=== PATIENT | male | born 1995 | race Caucasian/White ===

== ENCOUNTER 2021-01-04 07:39 | Emergency (ER) | payer MEDICAID, SELFPAY ==
[2021-01-04 07:45] VITALS: BP 139/60; PULSE 69; RESP 15; TEMP 36.5; O2SAT 100
[2021-01-04] MEDS: Balanced Salt Solution 15 ML BTL (08:00)
[2021-01-04] MEDS: Tetracaine 0.5% 4 ML BTL (08:00)
[2021-01-04] MEDS: Fluorescein STRIPS 100/BOX 1 MG (08:00)
--- NOTE | 2021-01-04 08:10 | W.ED.GENAD ---
Discharge Plan Disposition Patient Disposition: HOME Condition: Stable Discharge Details Clinical Impression: Foreign body in eye Primary Care Provider: Cleo Thompson ED Provider: Edwige Ramos Home Meds and New Rx's Prescriptions: No Action No Known Home Meds RF: 0 Discharge Instructions Instructions: Eye Foreign Body (ED) Additional Instructions: Please return immediately to the emergency department if you develop any new or worsening symptoms, if your condition does not improve as expected, or if you become otherwise concerned. It is extremely important that you call soon as possible to make an appointment to be seen in follow-up for this visit by your primary care doctor. Referrals: Cleo Thompson [Primary Care Provider] - Discharge Data Discharge Date/Time-TO BE ENTERED AT DEPARTURE: 01/04/21 08:25 Medical Decision Making Miguel Doshi is a 25 y/o man without reported major medical problems who presented to the emergency department with foreign body sensation right eye after feeling sawdust fly into eye yesterday. On exam patient is well and nontoxic-appearing. Normal vision bilaterally on visual acuity per nursing. Foreign body removed from upper lateral eyelid when lid swept. No abnormality on fluorescein staining. Concern for retained foreign body causing symptoms. Exam/history at this time is not consistent with infectious pathology, corneal abrasion, corneal ulceration. Patient reporting foreign body sensation resolved after foreign body removed. Patient with no further complaints, requesting discharge home. I had a lengthy discussion with Patient regarding return to emergency department precautions, home care, and importance of outpatient follow-up. Pt verbalizes understanding of the plan and is amenable. Patient discharged to home with clear plan for outpatient follow-up. All questions were answered. Disposition decision was made weighing the risks and benefits of hospitalization versus outpatient treatment, the risk for further decompensation, and the patient's wishes. Medical Records Medical records reviewed: Yes I reviewed the patient's medical records. HPI General Mode of arrival: ambulatory. Date/Time Provider Initiated Documentation: 01/04/21 08:10. Limitations to Documentation: no limitations. Information obtained by: patient, RN notes reviewed and old records reviewed. HPI Narrative: Miguel Felix is a 24-year-old man without reported history of major medical problems presenting to the emergency department with foreign body to eye. Pt reports that yesterday he was using an electric saw and wearing safety glasses when he felt a piece of sawdust fly into his right eye. Pt reports that he has the sensation that he has something in his eye. No visual changes, no eye pain, no discharge other than increased tears. Does not wear contact lenses. He denies any other injury or complaint. No fevers, no other pain, no vomiting. Has been able to go about his activities as usual since incident. Pt reports last tetanus 2-3 years ago. Related Data Home Medications Medication Instructions Recorded Confirmed Unknown [No Known Home Meds] 01/04/21 01/04/21 Allergies Allergy/AdvReac Type Severity Reaction Status Date / Time Penicillins Allergy Intermediate Topical Unverified 01/04/21 07:52 Irritation General Stated Complaint: EyeProblem TO: 4 Review of Systems Narrative: Constitutional: denies fevers Eyes: denies eye pain, eye redness, visual changes, reports foreign body sensation to right eye ENT: denies ear pain, dental pain, sore throat Cardiovascular: denies chest pain Respiratory: denies SOB, cough GI: denies abdominal pain, vomiting : denies flank pain MSK: denies back pain, neck pain Neuro: denies headaches, numbness, weakness [facility] Social History Smoking/Tobacco Use Status: Never Smoking risk assessment performed?: Yes Alcohol Intake: current Alcohol Intake frequency: holidays/special occasions only Drug use: Never Substance use type: does not use Do you feel safe at home: Yes Do you feel safe in your relationship?: Yes Exam Narrative Exam Narrative: Constitutional: well and [id number], pleasant, conversing normally HENT: head atraumatic/normocephalic/normal inspection, mucous membranes moist Eyes: mild injection of conjunctiva right eye, left conjunctiva normal, sclera normal, pupils 3mm b/l, ERRLA, EOMI. right upper and lower lid everted and swept, 1mm FB c/w wood swept from upper lateral lid. Fluorescein staining performed, there is no fluorescein uptake of the eye, normal appearance of cornea Neck: no stridor, normal ROM, trachea midline Resp: normal work of breathing, speaking in full sentences Cardio: normal rate, normal rhythm Skin: warm, dry, normal color, no rash Neuro: alert, not altered, grossly non-focal, normal tone, normal gait Ext: moving al extremities equally Psych: normal mood, normal affect, normal behavior Course Vital Signs Vital signs: Vital Signs Temperature 36.5 C 01/04/21 07:45 Pulse 69 01/04/21 07:45 Respiratory Rate 15 01/04/21 07:45 Blood Pressure 139/60 01/04/21 07:45 Pulse Oximetry 100 01/04/21 07:45 Temperature 36.5 C 01/04/21 07:45 Temperature Source Temporal Artery Scan 01/04/21 07:45 Pulse 69 01/04/21 07:45 Respiratory Rate 15 01/04/21 07:45 Respiratory Effort Non-Labored 01/04/21 07:50 Blood Pressure 139/60 01/04/21 07:45 Blood Pressure Position Sitting 01/04/21 07:45 Pulse Oximetry 100 01/04/21 07:45 Oxygen Delivery Method Room Air 01/04/21 07:45 Oxygen Flow Rate 0 01/04/21 07:45 Pain Level 1 01/04/21 07:45
== END 2021-01-04 08:25 | disposition home or self-care (01) ==
PROVIDERS: Emergency Provider Student in an Organized Health Care Education/Training Program; PCP Nurse Practitioner Family
DX: T15.11XA Foreign body in conjunctival sac, right eye, initial encounter (principal)
CPT/HCPCS: 99283

== ENCOUNTER 2021-02-26 14:41 | Outpatient (REF) | payer MEDICAID, SELFPAY ==
[2021-02-26 21:24] LABS: Mono Screening Negative (Negative)
== END 2021-02-26 14:42 | disposition home or self-care (01) ==
LOC: LBN 14:41
PROVIDERS: PCP Nurse Practitioner Family; Visit Provider Physician Assistant Medical
DX: J02.9 Acute pharyngitis, unspecified (principal)
CPT/HCPCS: 86308

== ENCOUNTER 2021-03-04 10:08 | Outpatient (CLI) | payer MEDICAID, SELFPAY ==
[2021-03-04] MEDS: Normal Saline - Diluent 50 ML VIAL IV (14:37)
[2021-03-04] MEDS: Omnipaque 350 MG/ML 100 ML BTL IJ (14:38)
[2021-03-04] MEDS: Normal Saline Flush 10 ML SYR IVP (14:39)
--- NOTE | 2021-03-04 14:42 | DI.CT_ITS ---
Exam(s) CT NECK W EXAM: CT NECK W CLINICAL HISTORY: PHARYNGITIS, J02.9, ? ABSCESS. TECHNIQUE: Imaging Protocol: Axial CT angiography was performed with multi-slice acquisition and mu lti-planar and/or 3D reconstructions. CONTRAST MATERIAL: Intravenous: Omnipaque 350 Contrast volume:100 cc COMPARISON: No exams were available for comparison FINDINGS: Tissues of the nasopharynx appear symmetrical. The uvula is midline. There is narrowing of the marce pharyngeal airway which is pinpoint but may be r elated to the patient holding his breath. There is no ring enhancing mass at this level to suggest p resence of an abscess. Free edge of the epiglottis appears unremarkable as do the valleculae and the aryepiglottic folds are relatively symmetrical. No discrete obvious lesions in the larynx and subgl ottic airway. There is no significant prevertebral soft tissue swelling. The thyroid gland appears unremarkable. No parotid gland masses. No abnormality seen in the submand ibular glands. Small benign-appearing lymph nodes are noted in both sides the neck. Largest measures 1.8 x 0 point 7 cm. No gross lymphadenopathy. Also no supraclavicular adenopathy. No thrombosis of the jugular v eins. IMPRESSION: 1. There is pinpoint narrowing of the airway at the oral-hypopharynx level. However, this may due to the patient holding his breath. There is no obvious asymmetry. Correlation with clinical findings recommended determine if repeat study with out breath holding would be recommended. 2. No salivary gland nor thyroid gland masses. 3. No gross lymphadenopathy in the neck. Multiple small lymph nodes are noted bilaterally. There i s no obvious supraclavicular adenopathy. RADIATION DOSE DELIVERED: 418.51mGy.cm Total DLP DATA REPOSITORY: All CT scans at this facility are submitted to the National Radiology Data Registry (NRDR) Dose Index Registry (DIR) with the [employer] [employer] (ACR). RADIATION OPTIMIZATION: All CT scans at this facility use at least one of these dose optimization te chniques: automated exposure control; mA and/or kV adjustment per patient size (includes targeted exa ms where dose is matched to clinical indication); or iterative reconstruction.
== END 2021-03-04 10:28 ==
PROVIDERS: PCP Nurse Practitioner Family; Visit Provider Physician Assistant Medical
DX: J02.9 Acute pharyngitis, unspecified (principal); J39.2 Other diseases of pharynx
CPT/HCPCS: 70491; J3490

== ENCOUNTER 2021-03-10 11:16 | Outpatient (REF) | payer MEDICAID, SELFPAY | END 2021-03-10 11:17 | disposition home or self-care (01) | LOC: NCHCN 11:16 | PROVIDERS: PCP Nurse Practitioner Family; Visit Provider Physician Assistant Medical | DX: J02.9 Acute pharyngitis, unspecified (principal) | CPT/HCPCS: 87070 ==

== ENCOUNTER 2022-06-26 14:52 | Emergency (ER) | payer MEDICAID, SELFPAY ==
[2022-06-26 15:09] VITALS: BP 116/60; PULSE 72; RESP 18; TEMP 36.5; O2SAT 99
--- NOTE | 2022-06-26 15:30 | DI.RAD_ITS ---
Exam(s) XR FINGER RT INDEX EXAM: XR FINGER RT INDEX CLINICAL HISTORY: Laceration, R/O Foreign body. TECHNIQUE: 2D digital imaging was performed of the right finger. Three views were obtained. PA/AP, oblique, and lateral views were obtained. COMPARISON: No exams were available for comparison FINDINGS: BONES: No acute fracture is present. No bony destructive lesion is seen. JOINTS: No dislocation present. SOFT TISSUE: Soft tissue swelling of the 2nd and 3rd fingers. No radiopaque foreign bodies are seen in the soft tissues. There is hyperdense material so seated with the nail beds of the 2nd and 3rd fi ngers. IMPRESSION: 1. No acute fracture or dislocation. 2. Soft tissue swelling of the 2nd and 3rd fingers. 3. Hyperdense material associated with the nail beds of the 2nd and 3rd fingers. Please correlate wi th physical exam. DATA REPOSITORY: RADIATION DOSE DELIVERED:
--- NOTE | 2022-06-26 16:45 | DI.VRAD_ITS ---
PROCEDURE INFORMATION: Exam: XR Right Finger(s) Exam date and time: 06/26/2022 4:23 PM Age: 27 years old Clinical indication: Injury or trauma; Other: Laceration by a outer diameter grinder attention proximal index finger and mcp; Right TECHNIQUE: Imaging protocol: Radiologic exam of the Right fingers. Views: Minimum 2 views. COMPARISON: No relevant prior studies available. FINDINGS: Normal anatomic alignment and bone density. No acute fracture, dislocation, or aggressive osseous lesion. Swelling at the tips of the 2nd and 3rd fingers. Hyperdense material in the 2nd and 3rd finger nail beds. IMPRESSION: 1. No acute skeletal pathology. 2. Finger tip swelling at the 2nd and 3rd fingers. 3. Foreign material within the nail beds of the 2nd and 3rd fingers. Dictated and Authenticated by: Darin Bledsoe MD. Ordering:JANNET Bernal MD
--- NOTE | 2022-06-26 16:48 | ED.GENADUL_ITS ---
Discharge Plan Disposition Patient Disposition: HOME Condition: Stable Discharge Details Clinical Impression: Injury of extensor tendon of right hand, Laceration of right index finger Primary Care Provider: Cleo Thompson ED Provider: Dolores Meza Home Meds and New Rx's Prescriptions: New clindamycin HCl 150 mg capsule 450 mg PO TID 7 Days Qty: 63 0RF Discharge Instructions Instructions: Finger Laceration (ED) Additional Instructions: Keep the Finger straight with the splint, Follow up with orthopedics. After 12 to 24 hours you may wash with soap and water. No soaking. Please return to the ER for any signs of infection including increased redness, red streaks, drainage or increased pain. Please take Tylenol or Ibuprofen with food every 4-6 hours as needed for pain and swelling. Take antibiotic as directed. Take it with food. Stand Alone Forms: Work Release Referrals: Cleo Thompson [Primary Care Provider] - Garrett Webster MD [ [facility] STAFF PHYSICIAN] - 1 week Discharge Data Discharge Date/Time-TO BE ENTERED AT DEPARTURE: 06/26/22 17:49 Medical Decision Making 27 year old male Right hand dominant with chief complaint of laceration which is just directly over the PIP joint. 1712:Laceration anethesized with Lidocaine 1 % plain, patient tolerated well. Laceration was repaired with 3 simple interrupted sutures wound was well approximated. Splint was applied by staff combat information center officer prior to discharge. Discussed case with Dr. Webster on-call for orthopedics. suspect extendor tendon laceration. He recommends follow-up with the clinic and splinting in the extended or straight position. Patient was given clindamycin here in the department and a prescription for clindamycin. Discussed strict return instructions and home care and instructed to follow-up with orthopedics. Patient was placed on the care management list for Ortho follow-up. HPI General Mode of arrival: ambulatory . Date/Time Provider Initiated Documentation: 06/26/22 15:37 . Limitations to Documentation: no limitations . Information obtained by: patient, RN notes reviewed and old records reviewed . HPI Narrative: 27 year old male Right hand dominant with chief complaint of laceration which is just directly over the PIP joint. He was using a external grinder tool when it slipped and cut his knuckle. He does have decreased extension to finger. Distal sensation intact. He reports TDAP within 10 years. No other associated symptoms or concerns, bleeding controlled. Related Data Home Medications Medication Instructions Recorded Confirmed clindamycin HCl 150 mg capsule 450 mg PO TID 7 days #63 caps 06/26/22 Previous Rx's Medication Instructions Recorded clindamycin HCl 150 mg capsule 450 mg PO TID 7 days #63 caps 06/26/22 Allergies Allergy/AdvReac Type Severity Reaction Status Date / Time Penicillins Allergy Intermediate Topical Unverified 06/26/22 16:50 Irritation General Stated Complaint: Laceration TO: 4 Review of Systems Musculoskeletal Musculoskeletal: Reports as per HPI and Reports arthralgias (Laceration) Integumentary/Breasts Skin/Breast: Reports wounds (PIP joint, ) PFS All Active Problems (Updated 06/26/22 @ 17:39 by Dolores Meza NP) Injury of extensor tendon of right hand (Acute) Laceration of right index finger (Acute) Chronic tonsillitis (Acute) Foreign body in eye (Acute) Social History Smoking/Tobacco Use Status: Never Smoking risk assessment performed?: Yes Alcohol Intake: current Alcohol Intake frequency: holidays/special occasions only Drug use: Never Substance use type: does not use Do you feel safe at home: Yes Do you feel safe in your relationship?: Yes Exam Extrem Right upper extremity: wrist Details: normal to inspection and normal ROM; no tenderness and no swelling and hand Details: laceration 2nd digit dorsal aspect proximal Details: linear and with sensation intact; without motor nerve function intact Hand/finger images: 1. Approximately 1.5 cm laceration over the PIP joint, decreased ability to extend finger. Distal sensation intact. Flexion WNL. Course Vital Signs Vital signs: Vital Signs Temperature 36.5 C 06/26/22 15:09 Pulse 72 06/26/22 15:09 Respiratory Rate 18 06/26/22 15:09 Blood Pressure 116/60 06/26/22 15:09 Pulse Oximetry 99 06/26/22 15:09 Temperature 36.5 C 06/26/22 15:09 Temperature Source Temporal Artery Scan 06/26/22 15:09 Pulse 72 06/26/22 15:09 Respiratory Rate 18 06/26/22 15:09 Blood Pressure 116/60 06/26/22 15:09 Blood Pressure Position Sitting 06/26/22 15:09 Pulse Oximetry 99 06/26/22 15:09 Oxygen Delivery Method Room Air 06/26/22 15:09 Oxygen Flow Rate 0 06/26/22 15:09 Procedures Laceration Laceration 1: Site: hand (Right index finger/mcp joint) Side (If applicable): right Size (cm): 1.5 Description: linear and contaminated Depth: simple, single layer Local Anesthetic: Lidocaine 1% Amount of anesthesia used (mL): 2 Pre-repair: wound explored (Suspect extendor tendon laceration) and irrigated extensively Skin layer closed with: nylon Size (cm): 5-0 Number of sutures: 3
[2022-06-26] MEDS: Clindamycin 150 MG CAP 450 MG PO (16:58)
== END 2022-06-26 17:49 | disposition home or self-care (01) ==
PROVIDERS: Emergency Provider Registered Nurse Emergency; PCP Nurse Practitioner Family
DX: S66.320A Laceration of extensor muscle, fascia and tendon of right index finger at wrist and hand level, initial encounter (principal); W29.0XXA Contact with powered kitchen appliance, initial encounter
CPT/HCPCS: 12001; 99283; 73140; J3490

== ENCOUNTER 2022-06-27 10:27 | Outpatient (CLI) | payer MEDICAID, SELFPAY ==
[2022-06-27 12:51] LABS: Source Nasal/Nares
[2022-06-27 20:00] LABS: COVID-19 PCR Negative (Negative)
== END 2022-06-27 10:28 | disposition home or self-care (01) ==
LOC: LBO 10:27
PROVIDERS: PCP Nurse Practitioner Family; Referring Provider Nurse Practitioner Family; Visit Provider Student in an Organized Health Care Education/Training Program
DX: Z20.822 Contact with and (suspected) exposure to COVID-19 (principal)
CPT/HCPCS: 87635

== ENCOUNTER 2022-06-29 12:06 | Day surgery (SDC) | payer MEDICAID, SELFPAY ==
--- NOTE | 2022-06-29 09:54 | PDOC.DSDIS_ITS ---
Discharge Plan Disposition Patient Disposition: HOME Condition: Good Discharge Details Reason For Visit: Right index finger extensor tendon laceration Attending Provider: Garrett Webster Primary Care Provider: Cleo Thompson Home Meds and New Rx's Prescriptions: New hydrocodone-acetaminophen 5-325 mg tablet 1 tab PO Q6H PRN (Reason: severe pain) Qty: 2 0RF Rx Instructions: Take one tablet up to every 6 hours as needed for severe postoperative pain acetaminophen 500 mg tablet 500 mg PO Q6H PRN (Reason: pain) Qty: 60 2RF ibuprofen 600 mg tablet 600 mg PO TID PRN (Reason: pain) Qty: 60 0RF No Action clindamycin HCl 150 mg capsule 450 mg PO TID 7 Days Qty: 63 0RF Label Comments: Pt states he began having a rash/hives behind R ear within 24 hours of starting this. He states it is very painful. Discharge Instructions Additional Instructions: Extensor Tendon Repair Discharge Instructions Activity: You may use your fingers for light activity. You should limit any excessive motion or forceful gripping until the sutures have been removed. Dressings: You should keep the splint on at all times. Keep splint dry and cover for bathing. You can rewrap the JOSE if needed. Keep in place until follow-up. Medications: - You should take Tylenol and Ibuprofen around the clock. - You have Hydrocodone prescribed for breakthrough pain control. Take only as needed and limit use as much as possible. This may cause constipation. Follow-up: 7-10 days for wound check. Referrals: Garrett Webster MD [ [facility] STAFF PHYSICIAN] - Equipment/Supplies: Splint Activity:: Elevate Remove Dressings/Wound Care:: Do Not Remove Shower/Bathe:: Cover Diet:: As Tolerated Discharge Orders Discharge Orders: Discharge Order (Routine); Ordered 06/29/22 Ordered By: Magalie Tian
[2022-06-29 12:36] VITALS: BP 109/90; PULSE 58; RESP 17; TEMP 36.6; O2SAT 98
--- NOTE | 2022-06-29 12:51 | W.PREOPHP ---
Documented by User: Magalie Fairchildxon 06/29/22 13:12 Assessment and Plan Assessment and plan (1) Injury of extensor tendon of right hand: Status: Acute (2) Laceration of right index finger: Status: Acute Assessment and plan: Plan: He was screened by the nursing staff to have no symptoms or red flags for possible Covid-19 infection. Denies any recent Covid infection. Educated patient on surgery covering surgical technique, recovery process, benefits and risks including but not limited to risk of infection, blood clot, damage to soft tissue/blood vessels/nerves in detail. After discussion patient gives verbal understanding of risks and elects to proceed with scheduling surgery. Patient had opportunity to have questions answered to their satisfaction. They will contact office if issues arise. Patient will continue to be scheduled for right index finger tendon repair and associated procedures with Dr. Webster History of Present Illness Narrative: Miguel is a 27-year-old [id number] male who presents to hospital for surgical repair of right index finger extensor tendon from injury on 06/26/22. Patient reports he was using a universal grinder operator when his hand slipped and he cut his MCP due to restricted motion he presented to the ER. Based on his symptoms orthopedics was consulted and recommended surgery. Reports all fingers feel a little numb - denies any change. Denies previous right index finger injuries. Review of Systems Cardiovascular Cardiovascular: Denies chest pain, Denies rapid heart rate, Denies irregular heart rhythm, Denies dyspnea, Denies dyspnea on exertion and Denies slow heart rate Respiratory Respiratory: Denies cough, Denies dyspnea and Denies dyspnea on exertion PFSH All Active Problems Foreign body in eye (Acute) Chronic tonsillitis (Acute) Injury of extensor tendon of right hand (Acute) Laceration of right index finger (Acute) Surgical History Hx of tonsillectomy Social History Smoking/Tobacco Use Status: Current-Occasional Tobacco Type: smokeless tobacco Smoking risk assessment performed?: Yes Alcohol Intake: current Alcohol Intake frequency: holidays/special occasions only Drug use: Never Substance use type: does not use Do you feel safe at home: Yes Do you feel safe in your relationship?: Yes Meds Allergies and Home Medications Allergies Allergy/AdvReac Type Severity Reaction Status Date / Time Penicillins Allergy Intermediate Topical Unverified 06/29/22 12:44 Irritation Home Medications Medication Instructions Recorded Confirmed Type clindamycin HCl 150 mg capsule 450 mg PO TID 7 days #63 caps 06/26/22 06/29/22 Rx acetaminophen 500 mg tablet 500 mg PO Q6H PRN pain #60 tabs 06/29/22 Rx hydrocodone 5 mg-acetaminophen 325 1 tab PO Q6H PRN severe pain #2 06/29/22 Rx mg tablet tabs ibuprofen 600 mg tablet 600 mg PO TID PRN pain #60 tabs 06/29/22 Rx Exam Const General: cooperative and no acute distress Resp Effort & Inspection: normal respiratory effort and able to speak in complete sentences Auscultation: clear to auscultation bilaterally, no rales, no rhonchi and no wheezes Cardio Heart Sounds: S1 normal, S2 normal, no murmurs, no rubs and no other Pulses: radial pulses present bilaterally Results Last Vital Signs Temp 97.9 F 06/29/22 12:36 Pulse 58 L 06/29/22 12:36 Resp 17 06/29/22 12:36 BP 109/90 06/29/22 12:36 Pulse Ox 98 06/29/22 12:36 Documented by User: Garrett Webster MD 06/30/22 07:51 Assessment and Plan Assessment and plan (1) Injury of extensor tendon of right hand: Status: Acute (2) Laceration of right index finger: Status: Acute Assessment and plan: Plan: He was screened by the nursing staff to have no symptoms or red flags for possible Covid-19 infection. Denies any recent Covid infection. Educated patient on surgery covering surgical technique, recovery process, benefits and risks including but not limited to risk of infection, blood clot, damage to soft tissue/blood vessels/nerves in detail. After discussion patient gives verbal understanding of risks and elects to proceed with scheduling surgery. Patient had opportunity to have questions answered to their satisfaction. They will contact office if issues arise. Patient will continue to be scheduled for right index finger tendon repair and associated procedures with Dr. Webster I interviewed and examined the patient with Magalie Tian PA-C. I agree with the documentation as above. The assessment and plan were formulated with my direct involvement. 7-year-old who suffered a laceration of his left hand from an angle universal grinder operator. He has obvious tendon involvement recommended operative fixation. I reviewed the technical considerations. I discussed the risk of the surgery to include bleeding, infection, pain, stiffness, rerupture, need for repeat procedures. I also discussed the necessary time for recovery and rehabilitation. All of his questions were answered. Garrett Webster MD FAAOS FAAHKS PFSH All Active Problems Foreign body in eye (Acute) Chronic tonsillitis (Acute) Injury of extensor tendon of right hand (Acute) Laceration of right index finger (Acute) Surgical History Hx of tonsillectomy Social History Smoking/Tobacco Use Status: Current-Occasional Tobacco Type: smokeless tobacco Smoking risk assessment performed?: Yes Alcohol Intake: current Alcohol Intake frequency: holidays/special occasions only Drug use: Never Substance use type: does not use Do you feel safe at home: Yes Do you feel safe in your relationship?: Yes Meds Allergies and Home Medications Allergies Allergy/AdvReac Type Severity Reaction Status Date / Time Penicillins Allergy Intermediate Topical Unverified 06/29/22 12:44 Irritation Home Medications Medication Instructions Recorded Confirmed Type clindamycin HCl 150 mg capsule 450 mg PO TID 7 days #63 caps 06/26/22 06/29/22 Rx acetaminophen 500 mg tablet 500 mg PO Q6H PRN pain #60 tabs 06/29/22 Rx hydrocodone 5 mg-acetaminophen 325 1 tab PO Q6H PRN severe pain #2 06/29/22 Rx mg tablet tabs ibuprofen 600 mg tablet 600 mg PO TID PRN pain #60 tabs 06/29/22 Rx
[2022-06-29] MEDS: Lactated Ringers 1,000 ML 80 ML IV (12:54)
--- NOTE | 2022-06-29 13:11 | W.ANESPRE ---
General Info Date of Service Date Performed: 06/29/22 Height: 5 ft 11 in Weight: 81 kg Body Mass Index (BMI): 24.9 Surgical Procedure: Operation Date: 06/29/22 14:55 Proposed Procedure Side Surgeon p Extensor Tendon Repair RIF Right Garrett Webster MD Meds Allergies and Home Medications Allergies Allergy/AdvReac Type Severity Reaction Status Date / Time Penicillins Allergy Intermediate Topical Unverified 06/29/22 12:44 Irritation Home Medication Medication Instructions Recorded clindamycin HCl 150 mg capsule 450 mg PO TID 7 days #63 caps 06/26/22 Current Visit Medications: Current Medications Generic Name Dose Route Start Last Admin Trade Name Freq PRN Reason Stop Dose Admin Acetaminophen 650 mg 06/29/22 09:52 Acetaminophen 325 Mg Tab PO Q4H PRN PRN Hydrocodone Bitart/Acetaminophen 0 tab 06/29/22 09:52 Hydrocodone 5/Acetaminophen 325 Tab PO Q3H PRN PRN Pain Ringer's Solution 1,000 mls @ 80 mls/hr 06/29/22 06:00 06/29/22 12:54 IV 06/29/22 23:59 80 mls/hr INFUSION LUCILLE Administration Cefazolin Sodium/Dextrose 2 gm in 50 mls @ 100 mls/hr 06/29/22 06:00 Ancef Duplex IVPB 06/29/22 23:59 PREOP LUCILLE IV Miscellaneous Supplies 1 each 06/29/22 06:00 Iv Access IV 06/29/22 23:59 DIRECTED LUCILLE Sodium Chloride 0 ml 06/29/22 06:00 Normal Saline Flush 10 Ml Syr IV 06/29/22 23:59 PRN PRN Sodium Chloride 0 ml 06/29/22 06:00 Normal Saline 10 Ml Vial IJ 06/29/22 23:59 DIRECTED PRN Sterile Water 0 ml 06/29/22 06:00 Water,Injection,Sterile 10 Ml Vial IJ 06/29/22 23:59 DIRECTED PRN PFSH Active Problems Active Problems: Problem Status Onset Code Foreign body in eye T15.90XA Chronic tonsillitis J35.01 Injury of extensor tendon of right hand S66.901A Laceration of right index finger S61.210A Medical History Medical History Comments:: Pt states he believes he woke up a few times during his last surgery. Surgical History Surgical History Hx of tonsillectomy Tobacco Smoking/Tobacco Use Status: Current-Occasional Tobacco Type: smokeless tobacco Alcohol Alcohol Intake: current Alcohol intake frequency: holidays/special occasions only Substance Use Substance use: Never Substance use type: does not use Vital Signs and Lab Results Vital Signs Most Recent Vital Signs in EMR: Most Recent Vital Signs Temp Pulse Resp BP Pulse Ox 36.6 C 58 L 17 109/90 98 06/29/22 12:36 06/29/22 12:36 06/29/22 12:36 06/29/22 12:36 06/29/22 12:36 Lab Results Blood Type / Crossmatch: No Data to Display Complete Blood Count: No Data to Display Complete Metabolic Panel: No Data to Display Liver Function Panel: No Data to Display Coagulation Panel: No Data to Display Cardiac Panel: No Data to Display Arterial Blood Gas: No Data to Display Venous Blood Gas: No Data to Display Pancreas Panel: No Data to Display Thyroid Panel: No Data to Display Infectious Disease: Coronavirus (COVID-19)(PCR) Negative (Negative) 06/27/22 10:32 Coronavirus 2019 Source Nasal/Nares 06/27/22 10:32 Blood Cultures: No Data to Display Toxicology Panel: No Data to Display Anesthesia Assessment and Plan Anesthesia History Personal History: No History of Anesthesia Complications Family History: No Family History of Anesthesia Complications Exercise Tolerance Exercise Tolerance: Metabolic Equivalents>4 Pertinent Negatives Pertinent Negatives: No Symptoms of GERD, No Major Cardiovascular Symptoms or Complaints, No Major Pulmonary Symptoms or Complaints and No History of CVA/TIA Cardiac & Pulmonary Exam Cardiac Exam: Normal S1/S2 Heart Sounds Pulmonary Exam: Clear Bilateral Breath Sounds Implantable Cardiac Device Does patient have a Pacemaker or an ICD?: No Airway Exam Known Difficult Airway: No Mallampati Class: 1 Mouth Opening: Normal (> 3cm) Thyromental Distance: Greater than 3 cm Neck Range of Motion: Full ROM Neck Circumference: Normal Teeth Condition: Normal Dentition ASA Classification ASA Score: ASA 2 Emergency Case?: No NPO Status NPO Status: NPO Clears >2 hours, Solids >8 hours Anesthesia Plan Resuscitation Status: Full Code Anesthesia Technique: General Anesthesia Airway Planned: Natural Airway Monitors Used: Standard Monitors
[2022-06-29 13:29] VITALS: BMI 24.9
[2022-06-29] MEDS: ceFAZolin 2 GM/50 ML BAG IVPB (14:15)
[2022-06-29] MEDS: Bupivacaine 0.5% Pres-Free W/EPI 30 ML VIAL (15:02)
[2022-06-29 15:32] VITALS: BP 134/84; PULSE 66; RESP 17; TEMP 36.4; O2SAT 98
[2022-06-29 16:01] VITALS: BP 116/65; PULSE 58; RESP 17; TEMP 36.3; O2SAT 96
--- NOTE | 2022-06-29 16:03 | W.ANESPOSTOP ---
Postoperative Evaluation Date, Time and Location Date Performed: 06/29/22 Time Performed: 16:04 Patient Location: Day Surgery Unit Vital Signs Most Recent Imported Vital Signs: Most Recent Vital Signs Temp Pulse Resp BP Pulse Ox 36.4 C L 66 18 134/84 98 06/29/22 15:32 06/29/22 15:32 06/29/22 15:32 06/29/22 15:32 06/29/22 15:32 Pain Score Most Recent Pain Score: Most Recent Pain Score Pain Level 0 06/29/22 15:32 Assessment Mental Status: Awake (Alert & Oriented to Patient Baseline) Airway and Respiratory Function: Patent airway with normal (patient baseline) respiratory exam Cardiovascular Function: Hemodynamically Stable Hydration Status: Adequately Hydrated Nausea & Vomiting: No Nausea or Vomiting Pain: Pt. Denies Any Pain Peripheral Nerve Block: Patient did not receive a nerve block
--- NOTE | 2022-06-30 07:35 | ROE_ITS ---
Date of service: 06/29/22 Time of Service: 15:00 Operative Note Operative Note DATE OF PROCEDURE: 06/29/22 PRE-OP DIAGNOSIS: Left dorsal hand laceration with index finger tendon involvement POST-OP DIAGNOSIS: same (Laceration of EDC of the index as well as EIP and traumatic first MCP joint arthrotomy) PROCEDURE: Irrigation and debridement of left hand laceration with arthrotomy repair and extensor tendon repair x2, EIP and EDC of the index SURGEON: Garrett Webster ADMINISTRATIVE NURSING SUPERVISOR: Magalie Tian ANESTHESIA TYPE: General:No Airway Refer to Anesthesia Record ESTIMATED BLOOD LOSS: 0 TOURNIQUET TIME: 0 COMPLICATIONS: None Patient was transported to: same day Patient's condition: stable Indications: Abel is a 27-year-old who injured the dorsum of his left hand with a sharp angle crystal flat grinder. He had involvement of tendon and therefore I recommended proceeding with operative irrigation, debridement, and tendon repair as indicated. I reviewed this with him and he agreed to proceed. I discussed the technical features of the case. I also reviewed the potential complications to include bleeding, infection, pain, stiffness, rerupture, need for repeat procedures, damage nerves and vessels. Despite these risk, he elected to proceed. Findings: There was a relatively clean laceration of the dorsum of the left hand. There was involvement of the first MCP joint with a traumatic arthrotomy and laceration of the extensor tendon to the index finger just proximal to the extensor hernandez involving both the EIP as well as the EDC of the index tendon. Thorough irrigation was performed and repair of the arthrotomy and the 2 tendons was performed. Procedure Description: Abel was greeted in the preoperative holding area. His identity was confirmed the correct site was identified and marked. The consent was reviewed the patient is signed. History physical was updated. He was then taken out to the operating room. He is On the stretcher. The left hand was placed onto a hand table and prepped with ChloraPrep and draped in a standard fashion. Prophylactic antibiotics in the form of cefazolin were administered. A timeout is performed for safe surgery. The surgical site was anesthetized with 1% lidocaine with epinephrine as was a field block just proximal to it. I then expanded the incision proximally distally for better exposure. The skin was incised sharply. There is no gross contamination appreciated. The distal tendon stump is these identifiable with the extensor hernandez. Further dissection was carried down. It was then evident that there was a traumatic arthrotomy. The articular surface of the dorsum of the first metatarsal was visible. Further dissection was carried proximally and the proximal stumps of the extensor tendons were identified. At this level there were 2 independent tendons of EIP and EDC of the index. These were mobilized and pinned into position for later repair. I then performed another thorough irrigation of the soft tissues about the index finger. I also irrigated the MCP joint of the index finger. Using a #2-0 Vicryl I repaired the arthrotomy of the index MCP joint. I then further exposed the tendon stumps for better visualization. Using a #3-0 FiberWire I performed repair of the tendons, EIP and EDC of the index separately. The repair was performed using a running, interlocking horizontal mattress type stitch. This reduced the tendon edges. This was tied. Each tendon was inspected and there was no gapping. The finger was brought down the maximal flexion and there was no gapping of the tendon. There was some ulnar subluxation of the EIP tendon but the EDC tendon remained centralized. There was no laceration of the sagittal bands and over the extensor hernandez. Once again this was irrigated. Deep tissues were injected with 1% lidocaine with epinephrine. The deep layer was closed with 3-0 Vicryl and the skin was closed with a 4-0 nylon. At the end the case all counts were correct. He was placed into a splint involving the index and middle finger. He will follow-up in 1 week.
== END 2022-06-29 16:32 | disposition home or self-care (01) ==
PROVIDERS: PCP Nurse Practitioner Family; Visit Provider Student in an Organized Health Care Education/Training Program
PROC: (CPT 26410; principal; 2022-06-29 14:45)
DX: S61.210A Laceration without foreign body of right index finger without damage to nail, initial encounter (principal); S66.320A Laceration of extensor muscle, fascia and tendon of right index finger at wrist and hand level, initial encounter; S63.650A Sprain of metacarpophalangeal joint of right index finger, initial encounter; W31.89XA Contact with other specified machinery, initial encounter
CPT/HCPCS: 26410 ×2; 26530; J0690; J1885; J2405; J2704

== ENCOUNTER 2023-08-04 03:35 | Emergency (ER) | payer MEDICAID, SELFPAY ==
[2023-08-04 03:47] VITALS: BP 139/77; PULSE 84; RESP 16; TEMP 36.6; O2SAT 100
[2023-08-04] MEDS: ACETAMINOPHEN 1,000 MG/100 ML BTL 400 MG IVPB (04:10)
[2023-08-04] MEDS: Normal Saline - Diluent 50 ML VIAL IJ (04:31)
[2023-08-04] MEDS: Omnipaque 350 MG/ML 100 ML BTL IJ (04:32)
--- NOTE | 2023-08-04 04:45 | DI.CT_ITS ---
Exam(s) CT ABDOMEN PELVIS W EXAM: CT ABDOMEN PELVIS W CLINICAL HISTORY: rlq pain at site of pubic symphysis,hernia vs msc TECHNIQUE: Imaging Protocol: Axial computed tomography images with coronal and sagittal reformatted images were created and reviewed CONTRAST MATERIAL: Intravenous: Omnipaque 350 Contrast volume:100 mL Oral: No COMPARISON: No exams were available for comparison FINDINGS: ABDOMEN: Lung Bases: Normal where visualized. Liver: Normal density. No measurable mass. Portal, Superior Mesenteric, and Splenic Veins: Unremarkable. Gallbladder and Biliary Tract: No radiodense calculus or dilation. Pancreas: Normal density, no abnormal calcifications or inflammatory process. Spleen: Normal. Adrenals: No masses seen. Kidneys: Normal size, contour and axis. No radiodense stones or obstructive uropathy. No masses seen. Abdominal Aorta: Abdominal portion non-dilated. Bowel: No obstruction or bowel wall thickening. Appendix is unremarkable. Peritoneal Cavity: No ascites, collection or mesenteric inflammatory response. No free air. Lymph Nodes: Within normal limits. Bones: Within normal limits for the patient's age. Soft Tissues: There is a high-grade tear or rupture of the proximal right abductor compartment muscul ature. There is intramuscular hematoma and associated soft tissue edema and fluid. The hematoma anna ears in right inguinal region. The adjacent femur is intact as is the adjacent right hemipelvis. Al though this is not a CT angiography no blush of contrast is seen to suggest arterial compromise. PELVIS: Bladder: Symmetric distention, no gross wall thickening. Reproductive Organs: Unremarkable as visualized. Lymph Nodes: Within normal limits. Bones: Within normal limits for the patient's age. IMPRESSION: 1. No acute abdominal or pelvic process. 2. Findings of a high-grade tear or rupture involving the right abductor compartment musculature with associated intramuscular hematoma and soft tissue edema. No discernible blush of contrast is seen t o suggest active hemorrhage. If there is still concern for hemorrhage, CT a should be performed. RADIATION DOSE DELIVERED: 1,073.57mGy.cm Total DLP DATA REPOSITORY: All CT scans at this facility are submitted to the National Radiology Data Registry (NRDR) Dose Index Registry (DIR) with the [employer] (ACR). RADIATION OPTIMIZATION: All CT scans at this facility use at least one of these dose optimization te chniques: automated exposure control; mA and/or kV adjustment per patient size (includes targeted exa ms where dose is matched to clinical indication); or iterative reconstruction.
--- NOTE | 2023-08-04 04:49 | W.ED.GENAD ---
Discharge Plan Disposition Patient Disposition: Home Discharge Details Chief Complaint: Abd Prob Clinical Impression: Separation of muscle (nontraumatic), right thigh Primary Care Provider: Cleo Thompson ED Provider: Miguel Boles Home Meds and New Rx's Prescriptions: No Action acetaminophen 500 mg tablet 500 mg PO Q6H PRN (Reason: pain) Qty: 60 2RF ibuprofen 600 mg tablet 600 mg PO TID PRN (Reason: pain) Qty: 60 0RF Discharge Instructions Instructions: Muscle Strain (ED), Hematoma (ED) Additional Instructions: As we discussed together, I am concerned you have partially ruptured or torn the adductor longus, adductor Hector, or the Gracillis. Please ice the area frequently for the next 24 to 48 hours, and then transition to heat to help the swelling reabsorb. As we discussed together I would recommend avoiding significant activity that results in the movement of bringing your leg in or forward as this can aggravate the pain. It would likely take a few weeks for this to heal and improve. We have placed a referral with supply chain specialist for close follow-up. Please take Tylenol and Motrin as needed for pain. Please use crutches to reduce the use and weightbearing of that leg as it heals for the next 1 to 2 weeks. If you notice any worsening of your symptoms, or any new symptoms such as vomiting, diarrhea, fever, chills, shortness of breath, chest pain, numbness, weakness, or fainting , please return immediately to the emergency department for reevaluation. Please follow up with your primary care provider as soon as possible for reassessment and reevaluation. As always, it was a pleasure participating in your medical care today. Referrals: Cleo Thompson [Primary Care Provider] - Anthony Cruz MD [ [facility] STAFF PHYSICIAN] - Garrett Webster MD [ [facility] STAFF PHYSICIAN] - Medical Decision Making 28-year-old male who is a [employer] by [employer] presents today for evaluation of right groin pain. 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 He had some mild pain at that time, then as the night went on the pain continued and he developed swelling in the groin area. Pain is made worse with movement. Improved by Motrin. He denies any fever or chills. He denies any chest pain or shortness of breath. He denies any difficulty urinating. No other complaints at this time. Exam demonstrates swelling over the pubic symphysis, as well as pain and swelling over the medial aspect of the right thigh. Pain is made worse with adduction. Differential is highest for muscle belly or tendon rupture for the adductors of the thigh. However hernia is on the differential but less likely. We will add Tylenol, get a CT scan, monitor closely and reassess. 5:[address] scan has returned, and confirms suspicion for high-grade tear or rupture or strain of the proximal adductor compartment. Ankle-brachial index was performed and result is 1.33, and certainly not indicative of a life-threatening arterial tear. Additionally clinically there is no evidence of pallor, diminished pulses, or delayed capillary refill. Patient otherwise feels well. We did offer crutches, and he has declined and feels that he does have some at home. Recommend continued ice and NSAIDs, and then eventual transition to heat. We will place referral for orthopedic follow-up. Recommended avoidance of activities that would utilize the muscle group for the next few weeks to allow for healing. Discussed red flags for which to return. I have extensively reviewed the treatment plan and discharge instructions with the patient. I have addressed all patient concerns at this time. The patient was made aware of what symptoms to monitor for that would warrant a return to the emergency department. Discussed the plan with the patient, they demonstrate verbal understanding and agreement with our assessment and plan at this time. The documentation in this chart was dictated using [employer] dictation software. Please excuse any dictation errors. FINDINGS: Liver: Normal. No mass. Gallbladder and bile ducts: Normal. No calcified stones. No ductal dilation. Pancreas: Unremarkable. Spleen: Normal. Adrenal glands: Normal. No mass. Kidneys and ureters: Normal. No hydronephrosis. Stomach and bowel: Unremarkable. No bowel wall thickening or intestinal obstruction. Appendix: Normal appendix. Intraperitoneal space: Unremarkable. No pneumoperitoneum. No abscess. Vasculature: Unremarkable. Lymph nodes: Unremarkable. Urinary bladder: Unremarkable as visualized. Reproductive: Unremarkable as visualized. Bones/joints: Unremarkable. No acute fracture. Soft tissues: There is a high-grade tear/rupture/strain of the proximal right adductor compartment musculature with associated fluid and local intramuscular hematoma as well as hematoma extending from the muscle into the right groin, just lateral to the inguinal canal. Extensive overlying subcutaneous contusion. This is not a CTA; however, there is no discernible blush to indicate brisk active hemorrhage. If there is concern for brisk active hemorrhage, CTA can be performed. IMPRESSION: There is a high-grade tear/rupture/strain of the proximal right adductor compartment musculature with associated fluid and local intramuscular hematoma as well as hematoma extending from the muscle into the right groin, just lateral to the inguinal canal. Extensive overlying subcutaneous contusion. This is not a CTA; however, there is no discernible blush to indicate brisk active hemorrhage. If there is concern for brisk active hemorrhage, CTA can be performed. Thank you for allowing us to participate in the care of your patient. Dictated and Authenticated by: Tyron Aguilar MD 08/04/2023 5:38 AM Eastern Time ([place] & [place]) HPI General Date/Time Provider Initiated Documentation: 08/04/23 03:44. HPI Narrative: 28-year-old male who is a [employer]ne by [employer] presents today for evaluation of right groin pain. 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 He had some mild pain at that time, then as the night went on the pain continued and he developed swelling in the groin area. Pain is made worse with movement. Improved by Motrin. He denies any fever or chills. He denies any chest pain or shortness of breath. He denies any difficulty urinating. No other complaints at this time. Related Data Home Medications Medication Instructions Recorded Confirmed acetaminophen 500 mg tablet 500 mg PO Q6H PRN pain #60 tabs 06/29/22 08/04/23 ibuprofen 600 mg tablet 600 mg PO TID PRN pain #60 tabs 06/29/22 08/04/23 Previous Rx's Medication Instructions Recorded acetaminophen 500 mg tablet 500 mg PO Q6H PRN pain #60 tabs 08/24/22 ibuprofen 600 mg tablet 600 mg PO TID PRN pain #60 tabs 06/29/22 Allergies Allergy/AdvReac Type Severity Reaction Status Date / Time Penicillins Allergy Intermediate Topical Unverified 08/04/23 03:49 Irritation General Stated Complaint: Abd Prob TO: 3 Review of Systems All systems reviewed & are unremarkable except as noted in HPI and below PFSH All Active Problems (Updated 08/04/23 @ 05:51 by Miguel Boles DO) Separation of muscle (nontraumatic), right thigh (Acute) Laceration of right index finger (Acute) Injury of extensor tendon of right hand (Acute) Foreign body in eye (Acute) Chronic tonsillitis (Acute) Surgical History Hx of tonsillectomy Social History Smoking/Tobacco Use Status: Current-Occasional Tobacco Type: smokeless tobacco Smoking risk assessment performed?: Yes Alcohol Intake: current Alcohol Intake frequency: holidays/special occasions only Drug use: Never Substance use type: does not use Do you feel safe at home: Yes Do you feel safe in your relationship?: Yes Exam Narrative Exam Narrative: 1.Const: Well-nourished, Well-developed, appearing stated age 2.Eyes: PERRL, no conjunctival injection, and symmetrical lids. 3.ENT: Atraumatic external nose and ears. Moist MM. Neck: Symmetric, trachea midline, No thyromegaly. 4.CVS: +S1/S2, No murmurs or gallops. Peripheral pulses 2+ and equal in all extremities. Brisk capillary refill in all extremities. 5.RESP: Unlabored respiratory effort. Clear to auscultation bilaterally. No wheezes rales or rhonchi 6.GI: Soft, Nontender/Nondistended, No hepatosplenomegaly. No guarding or rebound. Bruising and swelling is noted just lateral to the right of the pubic symphysis. Tender to palpation. Small amount of bruising extends to the scrotum, no testicular pain or tenderness though. Normal cremasteric reflex. Pain extends from the pubic symphysis down towards the right groin and medial aspect of the thigh. 7.MSK: Please see GI. Patient demonstrates tenderness over the medial proximal aspect of the right thigh. Pain is notably worsened with adduction of the right lower extremity. Mild pain with flexion as well. Distal pulses are +2 bilaterally. 8.Skin: Warm, Dry. No rashes or lesions. 9.Neuro: manager gallery II-XII grossly intact. Sensation grossly intact, no focal neurologic deficits. 10.Psych: (AAO) x3. Appropriate mood and affect Course Vital Signs Vital signs: Vital Signs Temperature 36.6 C 08/04/23 03:47 Pulse 84 08/04/23 03:47 Respiratory Rate 16 08/04/23 03:47 Blood Pressure 139/77 08/04/23 03:47 Pulse Oximetry 100 08/04/23 03:47 Temperature 36.6 C 08/04/23 03:47 Temperature Source Temporal Artery Scan 08/04/23 03:47 Pulse 84 08/04/23 03:47 Respiratory Rate 16 08/04/23 03:47 Respiratory Effort Normal 08/04/23 03:47 Blood Pressure 139/77 08/04/23 03:47 Blood Pressure Position Sitting 08/04/23 03:47 Pulse Oximetry 100 08/04/23 03:47 Oxygen Delivery Method Room Air 08/04/23 03:47 Oxygen Flow Rate 0 08/04/23 03:47 Pain Level 10 08/04/23 03:47
--- NOTE | 2023-08-04 05:39 | DI.VRAD_ITS ---
PROCEDURE INFORMATION: Exam: CT Abdomen And Pelvis With Contrast Exam date and time: 08/04/2023 4:34 AM Age: 28 years old Clinical indication: Abdominal pain; Localized; Right lower quadrant (rlq); Patient HX: Patient was pulling cow around 730 pm on 08/03/23, and heard a ripping noise unable to move right leg. Severe pain rlq groin area. ; Additional info: Scanned proximal portion of femur to look for muscule/tendon tear per Dr. Boles er provider. TECHNIQUE: Imaging protocol: Computed tomography of the abdomen and pelvis with contrast. Contrast material: OMNIPAQUE 350; Contrast volume: 100 ml; Contrast route: INTRAVENOUS (IV); COMPARISON: No relevant prior studies available. FINDINGS: Liver: Normal. No mass. Gallbladder and bile ducts: Normal. No calcified stones. No ductal dilation. Pancreas: Unremarkable. Spleen: Normal. Adrenal glands: Normal. No mass. Kidneys and ureters: Normal. No hydronephrosis. Stomach and bowel: Unremarkable. No bowel wall thickening or intestinal obstruction. Appendix: Normal appendix. Intraperitoneal space: Unremarkable. No pneumoperitoneum. No abscess. Vasculature: Unremarkable. Lymph nodes: Unremarkable. Urinary bladder: Unremarkable as visualized. Reproductive: Unremarkable as visualized. Bones/joints: Unremarkable. No acute fracture. Soft tissues: There is a high-grade tear/rupture/strain of the proximal right adductor compartment musculature with associated fluid and local intramuscular hematoma as well as hematoma extending from the muscle into the right groin, just lateral to the inguinal canal. Extensive overlying subcutaneous contusion. This is not a CTA; however, there is no discernible blush to indicate brisk active hemorrhage. If there is concern for brisk active hemorrhage, CTA can be performed. IMPRESSION: There is a high-grade tear/rupture/strain of the proximal right adductor compartment musculature with associated fluid and local intramuscular hematoma as well as hematoma extending from the muscle into the right groin, just lateral to the inguinal canal. Extensive overlying subcutaneous contusion. This is not a CTA; however, there is no discernible blush to indicate brisk active hemorrhage. If there is concern for brisk active hemorrhage, CTA can be performed. Dictated and Authenticated by: Tyron Aguilar MD. Ordering:ROHINI Rivera MD
[2023-08-04 06:06] VITALS: BP 126/68; PULSE 77; RESP 16; TEMP 36.6; O2SAT 98
== END 2023-08-04 06:05 | disposition home or self-care (01) ==
PROVIDERS: Emergency Provider Student in an Organized Health Care Education/Training Program; PCP Nurse Practitioner Family
DX: M62.051 Separation of muscle (nontraumatic), right thigh (principal)
CPT/HCPCS: 96365; 99285; 74177; 99284; J0131; J3490

== ENCOUNTER → 2023-08-23 01:33 | Outpatient (CLI) | payer MEDICAID, SELFPAY ==
--- NOTE | 2023-08-23 15:30 | DI.MRI_ITS ---
Exam(s) MR PELVIS WO EXAM: MR PELVIS WO CLINICAL HISTORY: PROXIMAL ABDUCTOR TEAR,separation of muscle,m62.051 TECHNIQUE: Multiplanar multisequence MRI of Pelvis was performed COMPARISON: CT CT ABDOMEN PELVIS W from 08/04/2023 FINDINGS: Bones: There is no fracture or contusion pattern. There is mild marrow edema seen in the anterior a spect of the right pubic bone. The SI joints and symphysis pubis are well maintained. Musculotendinous structures: There has been a complete tear of the right adductor longus tendon from its pubic bone insertion site. It is retracted approximately 2.1 cm distally. There is an associat ed complex fluid collection which is hyperintense on T2 and has both hyperintense and hypointense felicitas lities on the T1 weighted images likely reflecting a hematoma. This lies proximal and medial to the tendon and muscle. There is mild edema seen in the adjacent right adductor brevis and pectineus musc les. Intrapelvic structures demonstrate no significant abnormality. IMPRESSION: Complete tear of the right adductor longus tendon from its insertion site onto the pubic bone. It is retracted distally approximately 2.1 cm. There is a complex fluid collection anterior and medial to the tendon and muscle consistent with a hematoma. DATA REPOSITORY:
== END ==
PROVIDERS: PCP Nurse Practitioner Family; Visit Provider Student in an Organized Health Care Education/Training Program
DX: S39.021A Laceration of muscle, fascia and tendon of abdomen, initial encounter (principal); X58.XXXA Exposure to other specified factors, initial encounter
CPT/HCPCS: 72195

== ENCOUNTER 2023-11-20 14:43 | Outpatient (REF) | payer MEDICAID, SELFPAY ==
[2023-11-20 23:46] LABS: HIV-1/2 Ag & Ab Screen Negative (Negative)
[2023-11-20 23:54] LABS: Hepatitis C Ab w Rflx HCV PCR Negative (Negative)
[2023-11-21 11:09] LABS: Syphilis Serology (RPR) Negative (Negative)
[2023-11-22 14:30] LABS: Chlamydia Result Negative (Negative); GC Result Negative (Negative)
== END 2023-11-20 14:44 | disposition home or self-care (01) ==
LOC: NCHCN 14:43
PROVIDERS: PCP Nurse Practitioner Family; Visit Provider Nurse Practitioner Family
DX: Z11.3 Encounter for screening for infections with a predominantly sexual mode of transmission (principal); Z11.4 Encounter for screening for human immunodeficiency virus [HIV]; Z11.59 Encounter for screening for other viral diseases
CPT/HCPCS: 86803; 87389; 87491; 87591; 86592

== ENCOUNTER 2024-11-28 17:48 | Outpatient (REF) | payer MEDICAID, SELFPAY ==
[2024-11-28 18:56] LABS: Abs Immature Grans 0.01 10^3/uL (0.0-0.06); Absolute Basophil Count 0.04 10^3/uL (0.0-0.2); Absolute Eosinophil Count 0.21 10^3/uL (0.0-0.7); Absolute Lymphocyte Count 1.92 10^3/uL (1.2-3.4); Basophils % 0.8 %; Eosinophils % 4.1 %; HCT 42.6 % (40.0-50.0); HGB 14.5 g/dL (13.5-17.5); Immature Grans % 0.2 %; Lymphocytes % 37.1 %; MCH 30.4 pg (27.0-33.0); MCV 89 fL (80-95); MPV 9.7 fL (8.0-11.0); Monocytes % 7.7 %; Neutrophils % 50.1 %; Platelet Count 302 10^3/uL (130-400); RBC 4.77 10^6/uL (4.36-5.78); RDW 11.9 % (11.8-14.1); RDW-SD 39.1 fL; WBC 5.18 10^3/uL (4.4-10.8)
[2024-11-28 19:20] LABS: ALT 38 U/L (16-63); AST 24 U/L (15-37); Albumin 4.3 g/dL (3.4-5.0); Alkaline Phosphatase 104 U/L (46-116); Anion Gap 6.2 mmol/L (3-11); BUN 19 mg/dL (7-18); Bilirubin, Total 0.28 mg/dL (0.2-1.0); CO2 30.8 mmol/L (21.0-32.0); Calcium 9.4 mg/dL (8.5-10.1); Calculated LDL 142 mg/dL (<100); Chloride 106 mmol/L (98-107); Cholesterol 224 mg/dL (<200); Estimated GFR 105.79 (mL/min/1.73m2); Glucose 105 mg/dL (74-106); HDL Cholesterol 62 mg/dL (40-60); Potassium 4.7 mmol/L (3.5-5.1); Sodium 143 mmol/L (136-145); TSH 1.97 uIU/mL (0.36-3.74); Total Protein 7.4 g/dL (6.4-8.2); Triglyceride 104 mg/dL (<150)
[2024-11-28 19:30] LABS: Hemoglobin A1C 5.3 % (<5.7)
== END 2024-11-28 17:49 | disposition home or self-care (01) ==
LOC: NCHCN 17:48
PROVIDERS: PCP Family Medicine; Visit Provider Family Medicine
DX: Z00.00 Encounter for general adult medical examination without abnormal findings (principal)
CPT/HCPCS: 80053; 80061; 83036; 84443; 85025

== ENCOUNTER 2024-12-06 12:50 | Outpatient (REF) | payer MEDICAID, SELFPAY ==
[2024-12-14 16:18] LABS: Testosterone, Free 16.9 ng/dL (5.05-19.8); Testosterone, Total 736 ng/dL (240-950)
== END 2024-12-06 12:51 | disposition home or self-care (01) ==
LOC: NCHCN 12:50
PROVIDERS: PCP Family Medicine; Visit Provider Family Medicine
DX: R53.83 Other fatigue (principal)
CPT/HCPCS: 84402; 84403

== ENCOUNTER 2024-12-29 22:21 | Emergency (ER) | payer MEDICAID, SELFPAY ==
[2024-12-29 22:28] VITALS: BP 149/79; PULSE 83; RESP 16; TEMP 36.4; O2SAT 99
--- NOTE | 2024-12-29 22:45 | DI.CT_ITS ---
Exam(s) CT ABDOMEN PELVIS W EXAM: CT ABDOMEN PELVIS W CLINICAL HISTORY: right groin pain, new hernia, LLQ abd pain. TECHNIQUE: Imaging Protocol: Axial computed tomography images with coronal and sagittal reformatted images were created and reviewed CONTRAST MATERIAL: Intravenous: Omnipaque 350 Contrast volume:75 ml Oral: no COMPARISON: CT CT ABDOMEN PELVIS W from 08/04/2023 FINDINGS: ABDOMEN and PELVIS: Lung Bases: No acute findings. Liver: Normal density. No suspicious mass. Gallbladder and biliary tract: No radiodense calculus. No wall thickening or pericholecystic fluid. No biliary dilation. Pancreas: Normal density. No abnormal calcifications or inflammatory process. No evidence of mass. Spleen: Normal. Kidneys: Normal size, contour and axis. No radiodense stones. No obstructive uropathy. No suspicious masses seen. Adrenal glands: No masses seen. Vasculature: Abdominal aorta non-dilated. Soft tissues: Tiny fat containing left inguinal hernia. 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 Bladder: No gross wall thickening. No calculi.No focal mass. Bowel: No obstruction. No bowel wall thickening. Appendix normal. Peritoneal cavity: No ascites. No focal collection. No mesenteric inflammatory response. No free air . Bones: Unremarkable for age. Reproductive organs: Unremarkable. Lymph nodes: No pathologically enlarged lymph nodes. IMPRESSION:: No acute abnormality in the abdomen or pelvis. Tiny fat containing left inguinal herni a. RADIATION DOSE DELIVERED: 382.16mGy.cm Total DLP DATA REPOSITORY: All CT scans at this facility are submitted to the National Radiology Data Registry (NRDR) Dose Index Registry (DIR) with the [employer] ([employer]). RADIATION OPTIMIZATION: All CT scans at this facility use at least one of these dose optimization te chniques: automated exposure control; mA and/or kV adjustment per patient size (includes targeted exa ms where dose is matched to clinical indication); or iterative reconstruction.
--- NOTE | 2024-12-29 23:05 | W.ED.GENAD ---
Discharge Plan Disposition Patient Disposition: Home Condition: Good Discharge Details Clinical Impression: Inguinal hernia, Groin pain, Chronic pain of right wrist Primary Care Provider: Ruby Murguia V ED Provider: Miguel Boles Home Meds and New Rx's Prescriptions: No Action No Known Home Meds Discharge Instructions Instructions: Groin hernias, Wrist Fracture (DC) Additional Instructions: At this time you do have a demonstrated hernia on the left, and I suspect a small intermittent hernia on the right. Please follow-up with the surgeons for further discussion about potential nonemergent surgical options. Please avoid any heavy straining or stressing. Make sure to wear tight compression shorts at all times. Avoid lifting anything excessively heavy. Please keep your stool soft at all times, and use a stool softener as needed. Additionally you have notable fracture in your scaphoid, concerning only it appears to be at the waist of the scaphoid which could lead to vascular damage leading to in the bone. We have placed a referral with the hand surgeons, please follow-up closely with them at [facility] for further evaluation. If you notice any worsening of your symptoms, or any new symptoms such as vomiting, diarrhea, fever, chills, shortness of breath, chest pain, numbness, weakness, or fainting , please return immediately to the emergency department for reevaluation. Please follow up with your primary care provider as soon as possible for reassessment and reevaluation. As always, it was a pleasure participating in your medical care today. Referrals: Ruby Murguia MD [Primary Care Provider] - [facility] General Date/Time Provider Initiated Documentation: 12/29/24 22:35. 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 Patient states that this morning during intercourse he noted significant sudden severe right groin pain. Palpating the area he felt a large lump about the size of his thumb in that area. He laid down for a while, shifted his leg, and massage the area. Eventually the size notably diminished, and with the application of [place] balm, he had a mild to moderate improvement of his pain. However since then he has noticed a significantly diminished appetite, and in addition to that he has had 2 episodes of bloody stool. He admits to mild achiness in his left lower quadrant of his abdomen. He denies any severe hardness to his stool. He denies any tearing or ripping or burning sensation during his bowel movement. He denies any genital pain, dysuria, history of STDs, hematuria, or pain with ejaculation. He denies any numbness or tingling in his leg. He states that the symptoms are made worse in his groin when he bears down. No other complaints at this time. No history of known hernias otherwise. Related Data Home Medications ?Medication ?Instructions ?Recorded ?Confirmed Unknown [No Known Home Meds] 12/29/24 12/29/24 Allergies Allergy/AdvReac Type Severity Reaction Status Date / Time Penicillins Allergy Intermediate Topical Unverified 12/29/24 22:34 Irritation General Stated Complaint: Abd Prob TO: 3 Exam Narrative Exam Narrative: 1.Const: Well-nourished, Well-developed, appearing stated age 2.Eyes: PERRL, no conjunctival injection, and symmetrical lids. 3.ENT: Atraumatic external nose and ears. Moist MM. Neck: Symmetric, trachea midline, No thyromegaly. 4.CVS: +S1/S2, Peripheral pulses 2+ and equal in all extremities. Brisk capillary refill in all extremities. 5.RESP: Unlabored respiratory effort. Clear to auscultation bilaterally. No wheezes rales or rhonchi 6.GI: Soft, nondistended, no guarding or rebound. Mild tenderness in the left lower quadrant. Right groin demonstrates small hernia in the distal segment which is more noticeable with Valsalva or when the patient standing. No scrotal hernia. No testicular pain or tenderness. No penile pain or tenderness. No other abnormalities. Hernia itself appears fluid-filled and easily reducible. 7.MSK: Normocephalic, Extremities w/o deformity. Notable pain and tenderness over the anatomical snuffbox with associated swelling over the scaphoid. No cyanosis or clubbing, Normal movement of all extremities 8.Skin: Warm, Dry. No rashes or lesions. 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 Sensation grossly intact, no focal neurologic deficits. 10.Psych: (AAO) x3. Appropriate mood and affect Course Vital Signs Vital signs: Vital Signs Temperature 36.4 C L 12/29/24 22:28 Pulse 83 12/29/24 22:28 Respiratory Rate 16 12/29/24 22:28 Blood Pressure 149/79 H 12/29/24 22:28 Pulse Oximetry 99 12/29/24 22:28 Temperature 36.4 C L 12/29/24 22:28 Temperature Source Temporal Artery Scan 12/29/24 22:28 Pulse 83 12/29/24 22:28 Respiratory Rate 16 12/29/24 22:28 Blood Pressure 149/79 H 12/29/24 22:28 Blood Pressure Position Sitting 12/29/24 22:28 Pulse Oximetry 99 12/29/24 22:28 Oxygen Delivery Method Room Air 12/29/24:28 Oxygen Flow Rate 0 12/29/24 22:28 Pain Level 6 12/29/24 22:28 Medical Decision Making This is a very pleasant 29-year-old male with a past medical history of a right groin injury and likely muscular injury, 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 Patient states that this morning during intercourse he noted significant sudden severe right groin pain. Palpating the area he felt a large lump about the size of his thumb in that area. He laid down for a while, shifted his leg, and massage the area. Eventually the size notably diminished, and with the application of [place] balm, he had a mild to moderate improvement of his pain. However since then he has noticed a significantly diminished appetite, and in addition to that he has had 2 episodes of bloody stool. He admits to mild achiness in his left lower quadrant of his abdomen. He denies any severe hardness to his stool. He denies any tearing or ripping or burning sensation during his bowel movement. He denies any genital pain, dysuria, history of STDs, hematuria, or pain with ejaculation. He denies any numbness or tingling in his leg. He states that the symptoms are made worse in his groin when he bears down. No other complaints at this time. No history of known hernias otherwise. Exam demonstrates well-appearing male, Mild tenderness in the left lower quadrant. Right groin demonstrates small hernia in the distal segment which is more noticeable with Valsalva or when the patient standing. No scrotal hernia. No testicular pain or tenderness. No penile pain or tenderness. No other abnormalities. Hernia itself appears fluid-filled and easily reducible. Concern for small hernia, that may have been incarcerated or strangulated before but has now subsequently resolved. Differential also includes inguinal lymphadenopathy, less likely kidney stone. Symptoms appear at this time and consistent with a strangulated hernia. With the patient's bleeding, this may have been from small fissure or hemorrhoid, there is also concern that he may have had a small amount of incarcerated and strangulated bowel which developed some edema and then subsequent bloody bowel movements. We will get CT imaging, treat pain with NSAID therapy, check UA, monitor closely and reassess. Additionally somewhat nonrelated the patient also does have right wrist pain. He states it has been going on for few seasons, and it seemed to be recently exacerbated with some of his extracurricular activities. He states that he got an x-ray at his chiropractor's office but his family physician ordered an additional x-ray to be done here. Patient has asked if we can get the x-ray done now at this time so that he does not have to come back. We will get this. Suspect that the patient has had a previous scaphoid fracture, concern for potential malunion. 1:[address] scan shows no inguinal hernia on the right, however there is a small fat-containing left inguinal hernia there is also evidence of coarse ossifications of the right abductor muscle with an appearance of myositis ossificans from prior trauma. No other acute component though. Bowels are unremarkable. No evidence of significant mesenteric inflammation. Patient feels well. Hernia can certainly be palpated in the right inguinal region when the patient is standing and has a Valsalva event. I suspect he had a mild a transiently incarcerated hernia there earlier today which is now subsequently resolved. There is a chance that there may have been a serous fluid collection around his myositis ossificans which subsequently ruptured, but I feel that this is less likely given the acute onset and then subsequent acute resolution. Otherwise the patient appears clinically stable. We will place referral with surgery for further outpatient discussion of potential nonemergent surgical options. Additionally in regards to the hand there appears to be a fracture through the scaphoid waist, which is well-corticated concerning for the chronic component. I did offer the patient a thumb spica wrist splint and we have applied this. We will place a referral with [facility] for further discussion of potential surgical needs or interventions. Patient otherwise remained stable. Patient will be discharged home. Recommend avoidance of heavy lifting, Valsalva or other concerning activities. I have extensively reviewed the treatment plan and discharge instructions with the patient. I have addressed all patient concerns at this time. The patient was made aware of what symptoms to monitor for that would warrant a return to the emergency department. Discussed the plan with the patient, they demonstrate verbal understanding and agreement with our assessment and plan at this time. The documentation in this chart was dictated using [employer] dictation software. Please excuse any dictation errors. FINDINGS: Lungs: Lung bases clear. Liver: Normal appearing liver. Gallbladder and biliary ducts: Gallbladder partially collapsed. No calcified gallstones seen. No biliary dilatation. Pancreas: Normal appearing pancreas. Spleen: Normal appearing spleen. Adrenal glands: Normal appearing adrenal glands. Kidneys and ureters: Normal appearing kidneys. No hydronephrosis. Ureters obscured. Stomach and bowel: No oral contrast. Stomach partially decompressed. No small bowel dilatation to suggest obstruction. Normal-appearing colon. No evidence of diverticulitis or colitis. Appendix: Normal appendix. Intraperitoneal space: Trace fluid in the deep pelvis. No free air. Vasculature: Normal caliber abdominal aorta. Lymph nodes: No pathologically enlarged mesenteric, retroperitoneal, or pelvic sidewall lymph nodes. Urinary bladder: Normal appearing urinary bladder. Reproductive: Normal-appearing prostate gland and seminal vesicles. Bones/joints: No acute fracture seen among the bones of the abdomen or pelvis. Productive bone formation in the right adductor musculature, images 80 2-93 of series 3 with an appearance characteristic of myositis ossificans in a region of old trauma. Soft tissues: No right inguinal region hernia. Small fat containing left inguinal region hernia. No significant umbilical hernia. IMPRESSION: 1. No inguinal hernia on the right. Small fat containing left inguinal region hernia. 2. 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 Thank you for allowing us to participate in the care of your patient. Dictated and Authenticated by: Ty Daley MD 12/30/2024 12:12 AM Eastern Time ([place] & [place]) FINDINGS: Bones/joints: A fracture through the scaphoid waist has a somewhat well corticated appearance along the fracture margins and is of uncertain chronicity. Clinical correlation is recommended to distinguish an acute fracture from old trauma. Otherwise, no acute fracture is seen at the wrist. Soft tissues: No gross focal soft tissue abnormality is seen. IMPRESSION: Fracture through the scaphoid waist with a somewhat well corticated appearance along the fracture margins, uncertain chronicity. Clinical correlation is recommended to distinguish an acute fracture from old trauma. If clinically warranted, MRI could be obtained for further evaluation. Thank you for allowing us to participate in the care of your patient. Dictated and Authenticated by: Ty Daley MD 12/30/2024 1:00 AM Eastern Time ([place] & [place]) Quality:SDOH Health Related Social Needs: No Data to Display PFSH All Active Problems (Updated 12/30/24 @ 01:16 by Miguel Boles DO) Chronic pain of right wrist (Acute) Groin pain (Acute) Inguinal hernia (Acute) Injury of adductor muscle and tendon of right thigh (Acute ~08/04/23) Laceration of right index finger (Acute) Injury of extensor tendon of right hand (Acute) Foreign body in eye (Acute) Chronic tonsillitis (Acute) Surgical History Hx of tonsillectomy Social History Smoking/Tobacco Use Status: Current-Occasional Tobacco Type: smokeless tobacco Smoking risk assessment performed?: Yes Alcohol Intake: current Alcohol Intake frequency: holidays/special occasions only Drug use: Never Substance use type: does not use Housing: apartment Do you feel safe at home: Yes Do you feel safe in your relationship?: Yes
[2024-12-29 23:19] LABS: Abs Immature Grans 0.02 10^3/uL (0.0-0.06); Absolute Basophil Count 0.05 10^3/uL (0.0-0.2); Absolute Eosinophil Count 0.16 10^3/uL (0.0-0.7); Absolute Lymphocyte Count 1.18 10^3/uL (1.2-3.4); Absolute Monocyte Count 0.49 10^3/uL (0.1-0.8); Absolute Neutrophil Count 3.65 10^3/uL (1.2-6.7); Basophils % 0.9 %; Eosinophils % 2.9 %; HCT 43.2 % (40.0-50.0); HGB 14.3 g/dL (13.5-17.5); Immature Grans % 0.4 %; Lymphocytes % 21.3 %; MCH 30.2 pg (27.0-33.0); MCHC 33.1 % (32.0-36.0); MCV 91 fL (80-95); MPV 9.2 fL (8.0-11.0); Monocytes % 8.8 %; Neutrophils % 65.7 %; Platelet Count 239 10^3/uL (130-400); RBC 4.74 10^6/uL (4.36-5.78); RDW 12.2 % (11.8-14.1); RDW-SD 40.9 fL; WBC 5.55 10^3/uL (4.4-10.8)
[2024-12-29] MEDS: Normal Saline - Diluent 50 ML VIAL IJ (23:32)
[2024-12-29] MEDS: Omnipaque 350 MG/ML 100 ML BTL IJ (23:33)
[2024-12-29] MEDS: Normal Saline Flush 10 ML SYR IVP (23:34)
[2024-12-29 23:40] LABS: ALT 38 U/L (16-63); AST 22 U/L (15-37); Albumin 4.2 g/dL (3.4-5.0); Alkaline Phosphatase 96 U/L (46-116); Anion Gap 7.8 mmol/L (3-11); BUN 16 mg/dL (7-18); Bilirubin, Total 0.47 mg/dL (0.2-1.0); CO2 32.2 mmol/L (21.0-32.0); Calcium 9.3 mg/dL (8.5-10.1); Chloride 103 mmol/L (98-107); Estimated GFR 105.79 (mL/min/1.73m2); Glucose 94 mg/dL (74-106); Potassium 4.5 mmol/L (3.5-5.1); Sodium 143 mmol/L (136-145); Total Protein 7.5 g/dL (6.4-8.2)
--- NOTE | 2024-12-30 00:13 | DI.VRAD_ITS ---
PROCEDURE INFORMATION: Exam: CT Abdomen And Pelvis With Contrast Exam date and time: 12/29/2024 11:40 PM Age: 29 years old Clinical indication: Abdominal pain; Localized; Left lower quadrant (llq); Right groin pain, new hernia, llq abd pain TECHNIQUE: Imaging protocol: Computed tomography of the abdomen and pelvis with contrast. Radiation optimization: All CT scans at this facility use at least one of these dose optimization techniques: automated exposure control; mA and/or kV adjustment per patient size (includes targeted exams where dose is matched to clinical indication); or iterative reconstruction. Contrast material: OMNIPAQUE 350; Contrast volume: 75 ml; Contrast route: INTRAVENOUS (IV); COMPARISON: MR PELVIS WO 08/23/2023 2:58 PM FINDINGS: Lungs: Lung bases clear. Liver: Normal appearing liver. Gallbladder and biliary ducts: Gallbladder partially collapsed. No calcified gallstones seen. No biliary dilatation. Pancreas: Normal appearing pancreas. Spleen: Normal appearing spleen. Adrenal glands: Normal appearing adrenal glands. Kidneys and ureters: Normal appearing kidneys. No hydronephrosis. Ureters obscured. Stomach and bowel: No oral contrast. Stomach partially decompressed. No small bowel dilatation to suggest obstruction. Normal-appearing colon. No evidence of diverticulitis or colitis. Appendix: Normal appendix. Intraperitoneal space: Trace fluid in the deep pelvis. No free air. Vasculature: Normal caliber abdominal aorta. Lymph nodes: No pathologically enlarged mesenteric, retroperitoneal, or pelvic sidewall lymph nodes. Urinary bladder: Normal appearing urinary bladder. Reproductive: Normal-appearing prostate gland and seminal vesicles. Bones/joints: No acute fracture seen among the bones of the abdomen or pelvis. Productive bone formation in the right adductor musculature, images 80 2-93 of series 3 with an appearance characteristic of myositis ossificans in a region of old trauma. Soft tissues: No right inguinal region hernia. Small fat containing left inguinal region hernia. No significant umbilical hernia. IMPRESSION: 1. No inguinal hernia on the right. Small fat containing left inguinal region hernia. 2. 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 Dictated and Authenticated by: Ty Daley MD. Orderin Ramana Rivera MD
--- NOTE | 2024-12-30 00:30 | DI.RAD_ITS ---
Exam(s) XR WRIST RT COMPLETE EXAM: XR WRIST RT COMPLETE CLINICAL HISTORY: eval wrist and scaphoid,chronic pain rt wrist. TECHNIQUE: 2D digital imaging was performed. Three views. COMPARISON: None FINDINGS: BONES: There is fracture seen extending through the mid portion of the navicular with separation of f racture fragments by few millimeters. The fracture margins appear well corticated, consistent with o ld fracture. There are few adjacent bony fragments. No bony destructive lesion is seen. JOINTS: The carpal bones are normally aligned. SOFT TISSUE: Normal. IMPRESSION: Old/subacute scaphoid fracture. DATA REPOSITORY: RADIATION DOSE DELIVERED:
--- NOTE | 2024-12-30 01:01 | DI.VRAD_ITS ---
PROCEDURE INFORMATION: Exam: XR Right Wrist Exam date and time: 12/30/2024 12:41 AM Age: 29 years old Clinical indication: Injury or trauma; Blunt trauma (contusions or hematomas); Right; Injury date: Unknown; Eval wrist and scaphoid, horse stepped on wrist TECHNIQUE: Imaging protocol: Radiologic exam of the right wrist. Views: 3 or more views. COMPARISON: CR XR FINGER RT INDEX 06/26/2022 4:23 PM FINDINGS: Bones/joints: A fracture through the scaphoid waist has a somewhat well corticated appearance along the fracture margins and is of uncertain chronicity. Clinical correlation is recommended to distinguish an acute fracture from old trauma. Otherwise, no acute fracture is seen at the wrist. Soft tissues: No gross focal soft tissue abnormality is seen. IMPRESSION: Fracture through the scaphoid waist with a somewhat well corticated appearance along the fracture margins, uncertain chronicity. Clinical correlation is recommended to distinguish an acute fracture from old trauma. If clinically warranted, MRI could be obtained for further evaluation. Dictated and Authenticated by: Ty Daley MD. Orderin Ramana Rivera MD
[2024-12-30 01:23] LABS: Bilirubin Negative (Negative); Blood Negative (Negative); Clarity Clear (Clear); Glucose Negative (Negative); Ketones Negative (Negative); Leukocyte Esterase Negative (Negative); Nitrite Negative (Negative); Specific Gravity 1.015 (1.005-1.025); Urobilinogen 0.2 mg/dL (Up to 0.2)
[2024-12-30 01:40] VITALS: BP 121/67; PULSE 62; RESP 16; TEMP 36.4; O2SAT 99
== END 2024-12-30 01:41 | disposition home or self-care (01) ==
PROVIDERS: Emergency Provider Student in an Organized Health Care Education/Training Program; PCP Family Medicine
DX: K40.90 Unilateral inguinal hernia, without obstruction or gangrene, not specified as recurrent (principal); R10.31 Right lower quadrant pain; M25.531 Pain in right wrist; R10.32 Left lower quadrant pain; F17.290 Nicotine dependence, other tobacco product, uncomplicated
CPT/HCPCS: 29125; 36415; 80053; 99285; 73110; 74177; 81003; 85025; 99284; J3490

== ENCOUNTER 2025-03-15 16:40 | Outpatient (REF) | payer MEDICAID, SELFPAY | END 2025-03-15 16:41 | disposition home or self-care (01) | LOC: LBN 16:40 | PROVIDERS: PCP Family Medicine; Visit Provider Nurse Practitioner Family | DX: J02.9 Acute pharyngitis, unspecified (principal) | CPT/HCPCS: 87070 ==

== ENCOUNTER 2025-06-21 00:26 | Emergency (ER) | payer MEDICAID, SELFPAY ==
[2025-06-21] VITALS (14 sets, daily range): BP systolic 138; BP diastolic 53; PULSE 78–116; RESP 18; TEMP 39.1; O2SAT 93–99
[2025-06-21 01:20] LABS: Abs Immature Grans 0.04 10^3/uL (0.0-0.06); HCT 38.5 % (40.0-50.0); HGB 13.0 g/dL (13.5-17.5); Immature Grans % 0.3 %; MCH 30.0 pg (27.0-33.0); MCHC 33.8 % (32.0-36.0); MCV 89 fL (80-95); MPV 9.4 fL (8.0-11.0); Platelet Count 273 10^3/uL (130-400); RBC 4.34 10^6/uL (4.36-5.78); RDW 12.2 % (11.8-14.1); RDW-SD 39.5 fL; WBC 11.75 10^3/uL (4.4-10.8)
--- NOTE | 2025-06-21 01:26 | W.ED.GENAD ---
Discharge Plan Disposition Patient Disposition: Home Condition: Good Discharge Details Clinical Impression: Acute epididymitis, Contusion of testicle, Hematoma of muscle, Muscle tear, Fever Primary Care Provider: Ruby Murguia V ED Provider: Miguel Boles Home Meds and New Rx's Prescriptions: New levofloxacin 500 mg tablet 500 mg PO DAILY Qty: 7 0RF No Action ibuprofen 200 mg capsule 600 mg PO Q6H PRN acetaminophen [Tylenol Extra Strength] 500 mg tablet 500 mg PO Q6H PRN albuterol sulfate 90 mcg/actuation HFA aerosol inhaler 2 puff inhalation Q6H PRN (Reason: shortness of breath or wheezing) Qty: 8.5 0RF Discharge Instructions Instructions: Epididymitis and orchitis, Levofloxacin (Systemic) Additional Instructions: At this time your workup shows evidence of notable muscle tear and hematoma in your left groin. Additionally there is irritation and inflammation around your scrotum and testicle suggestive of epididymitis. In conjunction with your fever, I am concerned that your injury may have caused an infection. The appropriate antibiotic for the treatment of this is levofloxacin. While it is unlikely that this will cause a problem, levofloxacin can cause tendon irritation and or premature tendon rupture. It is imperative that while you are on this antibiotic, and after you are off the antibiotic that you avoid any activities that result in sudden movement, extreme muscle or ligament straining, high intensity exercises. Unfortunately you are already prone to muscle injury given the previous history of injuries that you have had. Please be very cautious. Please use ice, Tylenol Motrin inflammation and swelling. If you notice any worsening of your symptoms, or any new symptoms such as vomiting, diarrhea, fever, chills, shortness of breath, chest pain, numbness, weakness, or fainting , please return immediately to the emergency department for reevaluation. Please follow up with your primary care provider as soon as possible for reassessment and reevaluation. As always, it was a pleasure participating in your medical care today. Referrals: Ruby Murguia MD [Primary Care Provider, Medicine] HPI General Date/Time Provider Initiated Documentation: 06/21/25 00:28. 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 Patient states that 2 days ago he was at the [employer], and while he was riding in the animal and getting bucked he felt a notable pull/stretch/tear in his left groin. He had immediate pain in that area afterwards and has gradually worsened. He developed notable bruising in the scrotal area after this. He was managing this at home, until this evening when he developed extreme fever chills and rigors. He subsequently came to the ER for further assessment. Additionally he admits to mild left lower quadrant pain. He does admit to some mild burning with urination. He denies any vomiting or diarrhea. He denies any blood in his urine or stool. No other complaints at this time. No other modifying factors. Related Data Home Medications ?Medication ?Instructions ?Recorded ?Confirmed acetaminophen 500 mg tablet 500 mg PO Q6H PRN 01/27/25 06/21/25 (Tylenol Extra Strength) ibuprofen 200 mg capsule 600 mg PO Q6H PRN 01/27/25 06/21/25 albuterol sulfate 90 mcg/actuation 2 puff inhalation Q6H PRN 03/15/25 06/21/25 aerosol inhaler shortness of breath or wheezing #8.5 grams levofloxacin 500 mg tablet 500 mg PO DAILY #7 tabs 06/21/25 Previous Rx's ?Medication ?Instructions ?Recorded albuterol sulfate 90 mcg/actuation 2 puff inhalation Q6H PRN 03/15/25 aerosol inhaler shortness of breath or wheezing #8.5 grams levofloxacin 500 mg tablet 500 mg PO DAILY #7 tabs 06/21/25 Allergies Allergy/AdvReac Type Severity Reaction Status Date / Time Penicillins Allergy Intermediate Topical Unverified 06/21/25 00:48 Irritation General Stated Complaint: GenMedical TO: 3 Exam Narrative Exam Narrative: 1.Const: Well-nourished, Well-developed, appearing stated age 2.Eyes: PERRL, no conjunctival injection, and symmetrical lids. 3.ENT: Atraumatic external nose and ears. Moist MM. Neck: Symmetric, trachea midline, No thyromegaly. 4.CVS: +S1/S2, Peripheral pulses 2+ and equal in all extremities. Brisk capillary refill in all extremities. 5.RESP: Unlabored respiratory effort. Clear to auscultation bilaterally. No wheezes rales or rhonchi 6.GI: Soft, nondistended. No guarding or rebound. Patient does have notable tenderness in the left lower quadrant left groin. No large mass. There does appear to be some mild swelling of the left groin area, as well as the left scrotum. Mild tenderness with testicles bilaterally, there is also some mild induration and swelling of the scrotal varices. Normal cremasteric reflex bilaterally. No penile tenderness. No subcutaneous crepitus. 7.MSK: Normocephalic/Atraumatic, Extremities w/o deformity or ttp No cyanosis or clubbing, Normal movement of all extremities 8.Skin: Warm, Dry. No rashes or lesions. 9.Neuro: api architect II-XII grossly intact. Sensation grossly intact, no focal neurologic deficits. 10.Psych: (AAO) x3. Appropriate mood and affect Course Vital Signs Vital signs: Vital Signs Pulse 116 H 06/21/25 00:37 Respiratory Rate 18 06/21/25 00:37 Blood Pressure 138/53 L 06/21/25 00:37 Pulse Oximetry 99 06/21/25 00:37 Temperature 39.1 C H 06/21/25 00:39 Temperature Source Tympanic 06/21/25 00:39 Pulse 115 H 06/21/25 00:39 Respiratory Rate 18 06/21/25 00:44 Respiratory Effort Normal 06/21/25 00:44 Respiratory Depth Normal 06/21/25 00:44 Respiratory Pattern Normal 06/21/25 00:44 Blood Pressure 138/53 L 06/21/25 00:37 Blood Pressure Position Sitting 06/21/25 00:37 Pulse Oximetry 99 06/21/25 00:37 Oxygen Delivery Method Room Air 06/21/25 00:37 Oxygen Flow Rate 0 06/21/25 00:37 Lab/Test Results Lab/Test Results: 06/21/25 01:05 Blood Blood Culture - Pending 06/21/25 00:55 Blood Blood Culture - Pending Laboratory Tests Range/Units 06/21/25 01:05 WBC (4.4-10.8) 10^3/uL 11.75 H RBC (4.36-5.78) 10^6/uL 4.34 L Hgb (13.5-17.5) g/dL 13.0 L Hct (40.0-50.0) % 38.5 L MCV (80-95) fL 89 MCH (27.0-33.0) pg 30.0 MCHC (32.0-36.0) % 33.8 RDW (11.8-14.1) % 12.2 Plt Count (130-400) 10^3/uL 273 MPV (8.0-11.0) fL 9.4 Immature Gran % % 0.3 Neutrophils % % 78.1 Lymphocytes % % 10.6 Monocytes % % 8.3 Eosinophils % % 2.1 Basophils % % 0.6 Nucleated RBC % (0.0-0.3) % 0.0 Absolute Neutrophils (1.2-6.7) 10^3/uL 9.18 H Absolute Lymphocytes (1.2-3.4) 10^3/uL 1.25 Absolute Monocytes (0.1-0.8) 10^3/uL 0.98 H Absolute Eosinophils (0.0-0.7) 10^3/uL 0.25 Absolute Basophils (0.0-0.2) 10^3/uL 0.07 VBG Lactate (<or=2.0) mmol/L 0.7 Medical Decision Making This is a pleasant 30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 Patient states that 2 days ago he was at the [employer], and while he was riding in the animal and getting bucked he felt a notable pull/stretch/tear in his left groin. He had immediate pain in that area afterwards and has gradually worsened. He developed notable bruising in the scrotal area after this. He was managing this at home, until this evening when he developed extreme fever chills and rigors. He subsequently came to the ER for further assessment. Additionally he admits to mild left lower quadrant pain. He does admit to some mild burning with urination. He denies any vomiting or diarrhea. He denies any blood in his urine or stool. No other complaints at this time. No other modifying factors. He has no cough. Patient does have notable tenderness in the left lower quadrant left groin. No large mass. There does appear to be some mild swelling of the left groin area, as well as the left scrotum. Mild tenderness with testicles bilaterally, there is also some mild induration and swelling of the scrotal varices. Normal cremasteric reflex bilaterally. No penile tenderness. No subcutaneous crepitus. Differential is concerning for UTI, potential urethral tear is less likely. Infection post groin strain or muscle/tendon rupture is on the differential but less likely. Diverticulitis is of concern. Patient denies being kicked in the abdomen at all. He states that he is able to jump off the horse itself. Additionally the fever could certainly be a red hearing and separate from his groin injury, it may just be related to a viral etiology. Will rehydrate treat with NSAID therapy, get CT imaging of the abdomen and groin, monitor closely reassess. No evidence to suggest pneumonia as he has no cough. No neck pain or headache to suggest meningitis. 3:[address] scan shows notable hematoma in the left groin, without evidence of active bleed. Clinically he shows no pulsatile component on exam. Epididymis on the left also shows traumatic epididymitis, but no evidence of testicular rupture. The patient's previous old injuries are also present on imaging. Patient feels much better after fluids and NSAID therapy, heart rate has improved dramatically. I had a very long discussion with the patient regarding his fever. His laboratory workup has returned with mild elevation in his white count, normal lactate, mild left shift. Concern for potential bacterial etiology. His COVID flu and RSV test is negative. Urinalysis shows no infection. No cough or shortness of breath to suggest pneumonia. I am worried that he may have traumatic epididymitis causing a subsequent systemic bacterial infection. He does not actively have history of gonorrhea or chlamydia. I had a long discussion with the patient about the risks and benefits of the appropriate medication levofloxacin. FINDINGS: Liver: Normal. No mass. Gallbladde as movements, or aggressive physical activity while on the medication and for a month or 2 afterwards. Patient understands. She is otherwise hemodynamically stable at this time. Patient will be discharged home. Discussed red flags for which to return. I have extensively reviewed the treatment plan and discharge instructions with the patient. I have addressed all patient concerns at this time. The patient was made aware of what symptoms to monitor for that would warrant a return to the emergency department. Discussed the plan with the patient, they demonstrate verbal understanding and agreement with our assessment and plan at this time. The documentation in this chart was dictated using [employer] dictation software. Please excuse any dictation errors. Pancreas: Unremarkable. Spleen: Normal. Rupture and injury. I recommend he avoid any Adrenal glands: Normal. No mass. Kidneys and ureters: Normal. No hydronephrosis. Stomach and bowel: Unremarkable. No bowel wall thickening or intestinal obstruction. Appendix: Normal appendix. Intraperitoneal space: No hemoperitoneum, pneumoperitoneum, mesenteric/omental contusion, or retroperitoneal hematoma. Vasculature: Unremarkable. Lymph nodes: Unremarkable. Urinary bladder: Bladder is intact. Reproductive: The left epididymis is more prominent than the right epididymis and the left intrascrotal/extratesticular soft tissue appears contused, findings which suggest traumatic epididymitis. No discernible testicular rupture. Bones/joints: No acute fracture. Soft tissues: There is hematoma spanning approximately 5 cm at the junction of the left inferior rectus musculature and left inguinal canal, causing anterior displacement of the left inguinal canal. This is not a CTA but there is no discernible extravasated contrast to indicate active hemorrhage. No intrapelvic extraperitoneal hematoma. Myositis ossificans/chronic soft tissue calcification in the anterior aspect of the proximal bilateral adductor compartment musculature, unrelated to acute trauma. Other findings: No traumatic organ injury. IMPRESSION: 1. There is hematoma spanning approximately 5 cm at the junction of the left inferior rectus musculature and left inguinal canal, causing anterior displacement of the left inguinal canal. This is not a CTA but there is no discernible extravasated contrast to indicate active hemorrhage. No intrapelvic extraperitoneal hematoma. 2. The left epididymis is more prominent than the right epididymis and the left intrascrotal/extratesticular soft tissue appears contused, findings which suggest traumatic epididymitis. No discernible testicular rupture. 3. Myositis ossificans/chronic soft tissue calcification in the anterior aspect of the proximal bilateral adductor compartment musculature, unrelated to acute trauma. Thank you for allowing us to participate in the care of your patient. Dictated and Authenticated by: Tyron Aguilar MD 06/21/2025 2:07 AM Eastern Time ([place] & [place]) [facility] All Active Problems (Updated 06/21/25 @ 03:16 by Miguel Boles DO) Fever (Acute) Muscle tear (Acute) Hematoma of muscle (Acute) Contusion of testicle (Acute) Acute epididymitis (Acute) Bilateral inguinal hernia (BIH) (Acute) Injury of adductor muscle and tendon of right thigh (Acute ~08/04/23) Laceration of right index finger (Acute) Injury of extensor tendon of right hand (Acute) Foreign body in eye (Acute) Chronic tonsillitis (Acute) Surgical History Hx of tonsillectomy Social History Smoking/Tobacco Use Status: Current-Occasional Tobacco Type: smokeless tobacco Smoking risk assessment performed?: Yes Alcohol Intake: current Alcohol Intake frequency: holidays/special occasions only Drug use: Never Substance use type: does not use Housing: apartment Do you feel safe at home: Yes Do you feel safe in your relationship?: Yes
--- NOTE | 2025-06-21 01:31 | DI.CT_ITS ---
Exam(s) CT ABDOMEN PELVIS W EXAM: CT ABDOMEN PELVIS W CLINICAL HISTORY: fever, left groin trauma (rodeo), testicular pain. TECHNIQUE: Imaging Protocol: Axial computed tomography images with coronal and sagittal reformatted images were created and reviewed CONTRAST MATERIAL: Intravenous: Omnipaque 350 Contrast volume:100 ml Oral: yes no COMPARISON: CT CT ABDOMEN PELVIS W from 12/29/2024 FINDINGS: ABDOMEN and PELVIS: Lung Bases: No acute findings. Liver: Normal density. No suspicious mass. Gallbladder and biliary tract: No radiodense calculus. No wall thickening or pericholecystic fluid. No biliary dilation. Pancreas: Normal density. No abnormal calcifications or inflammatory process. No evidence of mass. Spleen: Normal. Kidneys: Normal size, contour and axis. No radiodense stones. No obstructive uropathy. No suspicious masses seen. Adrenal glands: No masses seen. Vasculature: Abdominal aorta non-dilated. Soft tissues: Scrotal thickening. Hematoma seen involving the inferior portion of the left rectus muscle with hematoma extending into and distending the left inguinal canal. Chronic bony densities noted in the anterior upper thigh musculature bilaterally, consistent with old trauma. Bladder: No gross wall thickening. No calculi.No focal mass. Bowel: No obstruction. No bowel wall thickening. Appendix normal. Peritoneal cavity: No ascites. No focal collection. No mesenteric inflammatory response. No free air. No retroperitoneal hematoma. Bones: Unremarkable for age. Reproductive organs: Scrotal thickening. No gross evidence of testicular rupture. Lymph nodes: No pathologically enlarged lymph nodes. IMPRESSION:: No acute abnormality in the abdomen or pelvis. No evidence of acute fracture. Scrotal swelling. No gross evidence of testicular rupture. Scrotal ultrasound recommended. Hematoma of the left inferior rectus muscle with hematoma extending into the left inguinal canal. The preliminary [facility] report was reviewed. RADIATION DOSE DELIVERED: Total DLP DATA REPOSITORY: All CT scans at this facility are submitted to the National Radiology Data Registry (NRDR) Dose Index Registry (DIR) with the [employer] (A[employer]). RADIATION OPTIMIZATION: All CT scans at this facility use at least one of these dose optimization techniques: automated exposure control; mA and/or kV adjustment per patient size (includes targeted exams where dose is matched to clinical indication); or iterative reconstruction.
[2025-06-21] MEDS: Normal Saline - Diluent 50 ML VIAL IJ (01:33)
[2025-06-21] MEDS: Omnipaque 350 MG/ML 100 ML BTL IJ (01:33)
[2025-06-21] MEDS: ACETAMINOPHEN 1,000 MG/100 ML BAG 400 MG IVPB (01:37)
[2025-06-21] MEDS: Ketorolac 15 MG/ML VIAL IVP (01:37)
[2025-06-21] MEDS: Lactated Ringers 1,000 ML 1000 ML IV (01:37)
[2025-06-21 01:38] LABS: ALT 44 U/L (16-63); AST 46 U/L (15-37); Albumin 4.1 g/dL (3.4-5.0); Alkaline Phosphatase 110 U/L (46-116); Anion Gap 8.9 mmol/L (3-11); BUN 22 mg/dL (7-18); Bilirubin, Total 0.4 mg/dL (0.2-1.0); CO2 28.1 mmol/L (21.0-32.0); Calcium 8.9 mg/dL (8.5-10.1); Chloride 102 mmol/L (98-107); Estimated GFR 119.31 (mL/min/1.73m2); Glucose 122 mg/dL (74-106); Potassium 3.9 mmol/L (3.5-5.1); Sodium 139 mmol/L (136-145); Total Protein 7.2 g/dL (6.4-8.2)
[2025-06-21 01:48] LABS: Procalcitonin 0.82 ng/mL
[2025-06-21 01:53] LABS: Glucose Negative (Negative)
--- NOTE | 2025-06-21 02:08 | DI.[facility]_ITS ---
PROCEDURE INFORMATION: Exam: CT Abdomen And Pelvis With Contrast Exam date and time: 06/21/2025 1:18 AM Age: 30 years old Clinical indication: Injury or trauma; Other: Horse riding; Blunt; Lower; Injury date: 06/21/25; Injury details: Hit left groin well riding on a horse; Fever, left groin trauma (rodeo), testicular pain TECHNIQUE: Imaging protocol: Computed tomography of the abdomen and pelvis with contrast. Radiation optimization: All CT scans at this facility use at least one of these dose optimization techniques: automated exposure control; mA and/or kV adjustment per patient size (includes targeted exams where dose is matched to clinical indication); or iterative reconstruction. Contrast material: [id number]; Contrast volume: 75 ml; Contrast route: INTRAVENOUS (IV); COMPARISON: CT ABDOMEN PELVIS W 12/29/2024 11:40 PM FINDINGS: Liver: Normal. No mass. Gallbladder and biliary ducts: Normal. No calcified stones. No ductal dilation. Pancreas: Unremarkable. Spleen: Normal. Adrenal glands: Normal. No mass. Kidneys and ureters: Normal. No hydronephrosis. Stomach and bowel: Unremarkable. No bowel wall thickening or intestinal obstruction. Appendix: Normal appendix. Intraperitoneal space: No hemoperitoneum, pneumoperitoneum, mesenteric/omental contusion, or retroperitoneal hematoma. Vasculature: Unremarkable. Lymph nodes: Unremarkable. Urinary bladder: Bladder is intact. Reproductive: The left epididymis is more prominent than the right epididymis and the left intrascrotal/extratesticular soft tissue appears contused, findings which suggest traumatic epididymitis. No discernible testicular rupture. Bones/joints: No acute fracture. Soft tissues: There is hematoma spanning approximately 5 cm at the junction of the left inferior rectus musculature and left inguinal canal, causing anterior displacement of the left inguinal canal. This is not a CTA but there is no discernible extravasated contrast to indicate active hemorrhage. No intrapelvic extraperitoneal hematoma. Myositis ossificans/chronic soft tissue calcification in the anterior aspect of the proximal bilateral adductor compartment musculature, unrelated to acute trauma. Other findings: No traumatic organ injury. IMPRESSION: 1. There is hematoma spanning approximately 5 cm at the junction of the left inferior rectus musculature and left inguinal canal, causing anterior displacement of the left inguinal canal. This is not a CTA but there is no discernible extravasated contrast to indicate active hemorrhage. No intrapelvic extraperitoneal hematoma. 2. The left epididymis is more prominent than the right epididymis and the left intrascrotal/extratesticular soft tissue appears contused, findings which suggest traumatic epididymitis. No discernible testicular rupture. 3. Myositis ossificans/chronic soft tissue calcification in the anterior aspect of the proximal bilateral adductor compartment musculature, unrelated to acute trauma. Dictated and Authenticated by: Tyron Aguilar MD. Orderin Ramana Rivera MD
[2025-06-21 02:37] LABS: COVID-19 PCR Negative (Negative); RSV PCR Negative (Negative)
[2025-06-21] MEDS: levoFLOXacin 750 MG/150 ML BAG 100 MG IVPB (03:33)
== END 2025-06-21 04:37 | disposition home or self-care (01) ==
PROVIDERS: Emergency Provider Student in an Organized Health Care Education/Training Program; PCP Family Medicine
DX: N45.1 Epididymitis (principal); S30.22XA Contusion of scrotum and testes, initial encounter; X58.XXXA Exposure to other specified factors, initial encounter; R50.9 Fever, unspecified
CPT/HCPCS: 99285; 99284; 80053; 84145; 87040; 87637; 96361; 96365; 96367; 96375; 74177; 81003; 83605; 85025; 87086; J0131; J1885; J1956; J3490